=== PATIENT | female | born 1965 | race African-American/Black ===

== ENCOUNTER 2018-08-28 09:49 | Inpatient (IN) | payer OTHER ==
[~2018-08-28] VITALS: Ht 167.6 cm; Wt 49.7 kg
[2018-08-28 10:01] VITALS: Ht 167.6 cm; Wt 49.7 kg
[2018-08-28 10:47] LABS: CALCIUM 9.2 mg/dL (8.5-10.1); CARBON DIOXIDE 28.9 mmol/L (21-32); CHLORIDE SERUM 104 mmol/L (98-107); CREATININE SERUM 0.9 mg/dL (0.6-1.0); GFR1 > 60 mL/min; GLUCOSE SERUM 115 mg/dL (74-106); SODIUM SERUM 140 mmol/L (136-145)
[2018-08-28 10:53] LABS: PLATELET COUNT 355 x10^3mcL (130-400); RED CELL DISTRIBUTION WIDTH 12.4 % (11.5-14.5)
[2018-08-28 11:00] LABS: ALBUMIN 4.3 g/dL (3.4-5.0); ALKALINE PHOSPHATASE 50 U/L (46-116); ALT/SGPT 23 U/L (14-59); AST/SGOT 15 U/L (15-37); BILIRUBIN TOTAL 0.46 mg/dL (0.20-1.00); T4(THYROXINE) 8.9 ug/dL (4.7-13.3); TOTAL PROTEIN, SERUM 8.1 g/dL (6.4-8.2)
[2018-08-28 11:26] LABS: BAND NEUTROPHIL 0 % (0-10); BASOPHIL 0 % (0-2); MONOCYTE 7 % (0-7); PLATELET MORPHOLOGY PLATELETS NORMAL; SEGMENTED NEUTROPHILS 68 % (37-75); rbc morphology (normal/abnorm) NORMAL (NORMAL)
[2018-08-28 12:49] VITALS: BP 111/56
[2018-08-28 12:57] LABS: MAGNESIUM 2.1 mg/dL (1.8-2.4); PHOSPHOROUS 3.5 mg/dL (2.5-4.9)
[2018-08-28 12:58] LABS: CHOLESTEROL/HDL RATIO 2.5
[2018-08-28] MEDS ORDERED: ATENOLOL25 MG PO (14:29)
[2018-08-28] MEDS ORDERED: SYNTHROID25 MCG PO (14:29)
[2018-08-28] MEDS ORDERED: IND10 PO (14:32)
[2018-08-28] MEDS ORDERED: PRILOSEC OTC20 M1 PO (14:32)
[2018-08-28 14:44] LABS: UA SPECIFIC GRAVITY <=1.005 (1.005-1.035); microscopic required? YES; urine erythrocyte 1+ (NEGATIVE)
[2018-08-28 14:51] LABS: AMPHETAMINE QUAL UR NONE DETECTED (See below)
[2018-08-28 16:55] VITALS: BP 95/55
[2018-08-28 20:36] VITALS: BP 116/61
[2018-08-29 05:45] VITALS: BP 115/63
[2018-08-29 06:28] LABS: BASOPHIL % 0.8 % (0-2); PLATELET COUNT 249 x10^3mcL (130-400); RED CELL DISTRIBUTION WIDTH 12.9 % (11.5-14.5)
[2018-08-29 06:59] LABS: CALCIUM 8.5 mg/dL (8.5-10.1); CARBON DIOXIDE 24.7 mmol/L (21-32); CHLORIDE SERUM 107 mmol/L (98-107); CREATININE SERUM 0.7 mg/dL (0.6-1.0); GFR1 > 60 mL/min; GLUCOSE SERUM 84 mg/dL (74-106); PHOSPHOROUS 3.8 mg/dL (2.5-4.9); POTASSIUM SERUM 3.8 mmol/L (3.5-5.1); SODIUM SERUM 141 mmol/L (136-145)
[2018-08-29 09:32] VITALS: BP 110/56
[2018-08-29 13:31] VITALS: BP 111/61
[2018-08-29 14:15] VITALS: BP 111/61
== END 2018-08-29 15:45 | disposition home or self-care (01) | DRG 243 ==
LOC: ED 09:49 → DU 11:24
PROVIDERS: Emergency Medicine; Internal Medicine
DX: K21.9 Gastro-esophageal reflux disease without esophagitis (principal); I24.9 Acute ischemic heart disease, unspecified; E87.8 Other disorders of electrolyte and fluid balance, not elsewhere classified; E05.90 Thyrotoxicosis, unspecified without thyrotoxic crisis or storm; E78.5 Hyperlipidemia, unspecified; I34.1 Nonrheumatic mitral (valve) prolapse; F41.0 Panic disorder [episodic paroxysmal anxiety]; Z68.1 Body mass index [BMI] 19.9 or less, adult; F41.9 Anxiety disorder, unspecified; Z88.6 Allergy status to analgesic agent; Z88.1 Allergy status to other antibiotic agents; Z88.5 Allergy status to narcotic agent; Z88.8 Allergy status to other drugs, medicaments and biological substances; Z98.51 Tubal ligation status
CPT/HCPCS: 83880; J7030

== ENCOUNTER 2018-08-30 12:30 | Emergency (ER) | payer OTHER ==
[~2018-08-30] VITALS: Ht 167.6 cm; Wt 48.1 kg
[~2018-08-30 12:30] MED LIST: ATENOLOL25 MG PO; IND10 PO; PRILOSEC OTC20 M1 PO; SYNTHROID25 MCG PO
[2018-08-30 12:46] VITALS: Ht 167.6 cm; Wt 48.1 kg
[2018-08-30 15:14] VITALS: BP 108/79
== END 2018-08-30 15:14 | disposition home or self-care (01) ==
LOC: ED 12:30
DX: K21.9 Gastro-esophageal reflux disease without esophagitis (principal); R07.89 Other chest pain; E05.90 Thyrotoxicosis, unspecified without thyrotoxic crisis or storm; Z88.1 Allergy status to other antibiotic agents; Z88.2 Allergy status to sulfonamides; Z88.8 Allergy status to other drugs, medicaments and biological substances; Z98.51 Tubal ligation status
CPT/HCPCS: J1885

== ENCOUNTER 2018-09-02 08:29 | Emergency (ER) | payer OTHER ==
[~2018-09-02] VITALS: Ht 167.6 cm; Wt 49.9 kg
[2018-09-02 08:32] VITALS: BP 133/79; Ht 167.6 cm; Wt 49.9 kg
[2018-09-02 09:25] LABS: BASOPHIL % 0.3 % (0-2); PLATELET COUNT 279 x10^3mcL (130-400)
[2018-09-02 09:43] LABS: CALCIUM 9.5 mg/dL (8.5-10.1); CARBON DIOXIDE 29.3 mmol/L (21-32); CHLORIDE SERUM 101 mmol/L (98-107); CREATININE SERUM 0.8 mg/dL (0.6-1.0); GFR1 > 60 mL/min; GLUCOSE SERUM 103 mg/dL (74-106); POTASSIUM SERUM 3.3 mmol/L (3.5-5.1); SODIUM SERUM 137 mmol/L (136-145)
[2018-09-02 09:47] LABS: ALBUMIN 4.1 g/dL (3.4-5.0); ALKALINE PHOSPHATASE 47 U/L (46-116); ALT/SGPT 20 U/L (14-59); AST/SGOT 15 U/L (15-37); BILIRUBIN TOTAL 0.4 mg/dL (0.20-1.00); LIPASE 190 IU/L (73-393); TOTAL PROTEIN, SERUM 7.9 g/dL (6.4-8.2)
== END 2018-09-02 10:45 | disposition home or self-care (01) ==
LOC: ED 08:29
PROVIDERS: Emergency Medicine
DX: B96.81 Helicobacter pylori [H. pylori] as the cause of diseases classified elsewhere (principal); E05.90 Thyrotoxicosis, unspecified without thyrotoxic crisis or storm; Z88.1 Allergy status to other antibiotic agents; Z88.2 Allergy status to sulfonamides; Z88.5 Allergy status to narcotic agent
CPT/HCPCS: 36415; Q0092

== ENCOUNTER 2018-11-02 17:53 | Emergency (ER) | payer OTHER ==
[~2018-11-02] VITALS: Ht 167.6 cm; Wt 50.3 kg
[2018-11-02 20:27] VITALS: BP 122/71
== END 2018-11-02 20:27 | disposition home or self-care (01) ==
LOC: ED 17:53
DX: R59.9 Enlarged lymph nodes, unspecified (principal); E05.90 Thyrotoxicosis, unspecified without thyrotoxic crisis or storm; I49.9 Cardiac arrhythmia, unspecified